=== PATIENT | male | born 1970 | race Two or more races ===

== ENCOUNTER → 2019-07-22 | Outpatient (CLI) | payer OTHER | END | disposition home or self-care (01) | LOC: SONOGRAMA 07:29 | DX: D29.1 Benign neoplasm of prostate (principal); R97.20 Elevated prostate specific antigen [PSA] ==

== ENCOUNTER 2020-07-31 16:24 | Outpatient (CLI) | payer OTHER | END 2020-07-31 18:00 | disposition home or self-care (01) | LOC: LAB 16:24 | PROVIDERS: ATTEND Urology | DX: R97.20 Elevated prostate specific antigen [PSA] (principal) ==

== ENCOUNTER 2020-08-22 07:22 | Outpatient (CLI) | payer OTHER | END 2020-08-22 07:55 | disposition home or self-care (01) | LOC: RAD 07:22 | PROVIDERS: ATTEND Urology | DX: D29.1 Benign neoplasm of prostate (principal); R97.20 Elevated prostate specific antigen [PSA] ==

== ENCOUNTER 2025-02-10 07:06 | Outpatient (CLI) | payer OTHER | END 2025-02-10 07:09 | disposition home or self-care (01) | LOC: SONOGRAMA 07:06 | PROVIDERS: ATTEND Urology | DX: N40.1 Benign prostatic hyperplasia with lower urinary tract symptoms (principal); R97.20 Elevated prostate specific antigen [PSA] ==